=== PATIENT | male | born 1990 | race Caucasian/White ===

== ENCOUNTER 2017-12-22 18:50 | Emergency (ER) | payer SELFPAY ==
[~2017-12-22] VITALS: Ht 152.4 cm; Wt 72.7 kg
[2017-12-22 19:30] VITALS: BP 159/66
--- NOTE | 2017-12-22 23:05 | NUR ---
PATIENT LEFT WITHOUT BEING SEEN BY DR. KUNZ. NO FURTHER CARE PROVIDED FOR PATIENT.
== END 2017-12-22 23:05 | disposition left against medical advice (07) ==
LOC: MED 18:50
DX: S09.90XA Unspecified injury of head, initial encounter (principal); Z53.21 Procedure and treatment not carried out due to patient leaving prior to being seen by health care provider; X58.XXXA Exposure to other specified factors, initial encounter; Y93.89 Activity, other specified; Y92.89 Other specified places as the place of occurrence of the external cause; Y99.8 Other external cause status